=== PATIENT | male | born 1940 | race African-American/Black ===

== ENCOUNTER 2018-02-18 23:52 | Emergency (ER) | payer OTHER ==
[~2018-02-18] VITALS: Ht 190.5 cm; Wt 97.5 kg
--- NOTE | ~2018-02-18 | EKG ---
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 SHINE : 1940 Requested By: Narciso Funez Order Number: [id number] MD: Sarmad Franco Measurements Intervals Witt Rate: 81 P: 55 WA: 167 QRS: -44 QRSD: 121 T: 99 QT: 425 QTc: 494 Interpretive Statements Sinus rhythm LVH with QRS widening and repolarization abnormality Leftward axis Poor R wave progression Compared to ECG 10/26/2014 08:24:45 ST and T wave abnormality is less pronounced Electronically Signed On 02-19-2018 8:29:55 CDT by Sarmad Franco [email or web address] <ELECTRONICALLY SIGNED> By: Sarmad Franco MD, [facility] 02/19/18828 Sarmad Franco MD, [facility] /EPI
[~2018-02-18 23:52] MED LIST: ASPIRIN325 PO; CENTRUM SILVER1 EAC4 PO; COLACE100 MG PO; DICLOFENAC PO; GLUCOTROL XL10 MG PO; GLUCOTROL5 MG PO; IMDUR 30 MG TAB30 M1 PO; KEFLEX500 MG PO; LIPITOR40 MG PO; LOPRESSOR PO; LOPRESSOR100 M1 PO; LOSARTAN-HCTZ1 EAC1 PO; LOVENOX; METFORMIN PO; METOPROLOL PO; METOPROLOL SUCC25 M1 PO; NORVASC10 MG PO; PRILOSEC20 MG PO; SINGULAIR 10 MG10 M1 PO; TESSALON PERLE100 MG PO
[2018-02-19 00:30] LABS: ABSOLUTE NEUTROPHILS 3.9 thou/uL (1.4-8.2); BASOPHILS 0.7 % (0.0-2.0); EOSINOPHILS 1.1 % (0.0-3.0); HEMATOCRIT 34.5 % (42.0-52.0); LYMPHOCYTES 32.1 % (24.0-44.0); MCH 27.4 pg (26.0-34.0); MCV 85.7 fL (80.0-100.0); PLATELET COUNT 168 thou/uL (150-400); POLYS 57.1 % (36.0-66.0); RBC 4.02 mil/uL (4.50-6.00); RDW 16.3 % (10.5-14.5); WBC 6.8 thou/uL (4.0-11.0)
[2018-02-19 00:39] LABS: ANION GAP 16 mmol/L (7-16); BUN 47 mg/dL (7-18); CALCIUM 9.4 mg/dL (8.5-10.1); CHLORIDE 103 mmol/L (98-107); CO2 18 mmol/L (21-32); CREATININE 3.1 mg/dL (0.7-1.3); GLUCOSE 300 mg/dL (74-106); POTASSIUM 3.8 mmol/L (3.5-5.1); SODIUM 137 mmol/L (136-145)
[2018-02-19 00:47] LABS: ALBUMIN 3.8 g/dL (3.4-5.0); MAGNESIUM 2.2 mg/dL (1.8-2.4); SGOT 24 U/L (15-37); SGPT 24 U/L (30-65); TOTAL BILIRUBIN 0.2 mg/dL (<0.1-1.0); TOTAL PROTEIN 7.9 g/dL (6.4-8.2); TROPONIN-I < 0.04 ng/mL (<0.06)
[2018-02-19 02:21] VITALS: BP 125/75
== END 2018-02-19 02:22 | disposition home or self-care (01) ==
LOC: ER 23:52
PROVIDERS: Emergency Medicine
DX: R55 Syncope and collapse (principal); I12.9 Hypertensive chronic kidney disease with stage 1 through stage 4 chronic kidney disease, or unspecified chronic kidney disease; N18.3 Chronic kidney disease, stage 3 (moderate); F17.210 Nicotine dependence, cigarettes, uncomplicated; E11.22 Type 2 diabetes mellitus with diabetic chronic kidney disease; Z90.49 Acquired absence of other specified parts of digestive tract